=== PATIENT | female | born 1970 | race Caucasian/White ===

== ENCOUNTER 2024-10-02 04:52 | Day surgery (SDC) | payer OTHER ==
[2024-09-29 15:46] VITALS: BMI 32.9
[2024-10-02] MEDS ORDERED: LIDOCAINE HCL 1%, 10 MG/ML (20ML VIAL) ONE ×2 (07:22→09:56)
[2024-10-02] MEDS ORDERED: MIDAZOLAM HCL 2 MG/2 ML SINGLE DOSE VIAL ONE (09:18)
[2024-10-02] MEDS ORDERED: PROPOFOL 20 ML ONE ×2 (09:22→10:08)
[2024-10-02] MEDS: ceFAZolin SODIUM 1 GM VIAL IVPB ONE (09:29)
[2024-10-02] MEDS: LIDOCAINE HCL 1%, 10 MG/ML (20ML VIAL) INF ONE (09:33)
[2024-10-02] MEDS ORDERED: ONDANSETRON 4 MG/2 ML VIAL IVPUSH PRN (10:41)
[2024-10-02] MEDS ORDERED: LACTATED RINGERS SOLUTION 1,000 ML IV SCH (10:45)
[2024-10-02 11:08] VITALS: RESP 16
[2024-10-02 11:09] VITALS: PULSE 82
[2024-10-02 11:32] VITALS: BP 113/72; TEMP 97.5
== END 2024-10-02 12:23 | disposition home or self-care (01) ==
LOC: JASU-SURG 04:52
PROVIDERS: ATTEND Surgery
PROC: 0JH63WZ Insertion of Totally Implantable Vascular Access Device into Chest Subcutaneous Tissue and Fascia, Percutaneous Approach (ICD-10-PCS; principal; 2024-10-02 09:00)
DX: C50.919 Malignant neoplasm of unspecified site of unspecified female breast (principal)
CPT/HCPCS: 36561; C1788; 71045-TC-FY; 76000-TC-FY; 94760; C1751; J1644